=== PATIENT | female | born 1990 | race Caucasian/White ===

== ENCOUNTER 2017-01-16 14:36 | Emergency (ER) | payer SELFPAY ==
[~2017-01-16] VITALS: Ht 160 cm; Wt 58.0 kg
[2017-01-16 14:39] VITALS: BP 127/66; PULSE 102; RESP 20; TEMP 98; O2SAT 98
[2017-01-16] MEDS ORDERED: IBUP800T23 PO (15:35)
[2017-01-16] MEDS ORDERED: CLIN1CAP5 PO (15:35)
--- NOTE | 2017-01-16 15:35 | PD ---
HPI Chief Complaint: Skin Problem Time Seen by Provider: 15:31 Travel History International Travel<30 days: No Contact w/Intl Traveler<30days: No Traveled to known affect area: No History of Present Illness HPI 26-year-old female presents to the emergency department needing medical clearance to report to drug rehabilitation. She has a generalized rash to her body that she has had for multiple months that the rehabilitation center says he will take until she is cleared medically. She has been smoking methamphetamine since July and the rash started a few months after. Reports rash is painful. Reports picking at the scabs consistently. Reports thinking the rash is related to smoking meth. Denies fever, chills, nausea, vomiting. Has tried topical creams with some relief of symptoms. Patient reports being up -to-date on her tetanus vaccinations. Allergies to sulfa. No other modifying factors or associated signs and symptoms. PFSH Past Medical History Depression: Yes Cancer: No Diminished Hearing: No Psychiatric: Yes ("DEPRESSION"--"WAS CRYING FOR NO REASON AT ALL") Seizures: No Thyroid Disease: No Ulcer: No Social History Alcohol Use: Yes (TWICE A MONTH) Tobacco Use: No (1PPD) Substance Use: Yes (HX OF MARIJUANA USE) Allergies-Medications (Allergen,Severity, Reaction): Coded Allergies: Sulfa (Verified Allergy, Severe, Hives, 01/16/17) HIVES Reported Meds & Prescriptions Reported Meds & Active Scripts Active Ibuprofen 800 Mg Tab 800 Mg PO Q6HR PRN Clindamycin (Clindamycin HCl) 150 Mg Cap 450 Mg PO Q6H 10 Days Review of Systems Except as stated in HPI: all other systems reviewed are Neg Physical Exam Narrative GENERAL: Well-nourished, well-developed female patient, in no acute distress; afebrile, nontoxic-appearing SKIN: Warm and dry. Multiple scabbed areas noted to face, chest, back, bilateral upper extremities, buttocks; some areas appear infected with erythema surrounding them, but I do not see any areas that are fluctuant or with drainage. HEAD: Atraumatic. Normocephalic. EYES: Pupils equal and round at 3 mm with brisk reaction. No scleral icterus. No injection or drainage. PERRLA. ENT: Mucosa pink and moist. EARS: Bilateral pinnae and external canals appear within normal limits. NECK: Trachea midline. CARDIOVASCULAR: Regular rate and rhythm. No murmur appreciated. RESPIRATORY: No accessory muscle use. Clear to auscultation. Breath sounds equal bilaterally. GASTROINTESTINAL: Abdomen soft, non-tender, nondistended. Hepatic and splenic margins not palpable. Bowel sounds are active 4 quadrants. MUSCULOSKELETAL: No obvious deformities. No clubbing. No cyanosis. No edema. NEUROLOGICAL: Awake and alert. Oriented 3. No obvious cranial nerve deficits. Motor grossly within normal limits. Normal speech. Moves all extremities. 5/5 strength to all extremities. PSYCHIATRIC: Appropriate mood and affect; insight and judgment normal. Data Data Last Documented VS Vital Signs Date Time Temp Pulse Resp B/P Pulse Ox O2 Delivery O2 Flow Rate FiO2 01/16/17 14:39 98.0 102 20 127/66 98 Room Air MDM Medical Decision Making Medical Screen Exam Complete: Yes Emergency Medical Condition: Yes Medical Record Reviewed: Yes Differential Diagnosis Nonspecific rash, picking, methamphetamine abuse Narrative Course 26-year-old female with a nonspecific rash generalized to her body. The patient reports methamphetamine abuse and reports picking at the areas consistently. She has been smoking methamphetamine since July and the rash started a few minutes later. She wants to get into drug rehabilitation any clearance. There are a few areas that appear erythemic and with possible infection. Patient is afebrile and nontoxic-appearing. She denies fever, chills, nausea and vomiting. Patient reports being up-to-date on her tetanus vaccinations. Clindamycin, ibuprofen prescribed for home. Instructed patient to follow up with dermatology. Patient is medically cleared and stable for discharge. Discussed reasons to return to the emergency department. Instructed patient to follow up with primary care provider. Patient agrees with treatment plan. The patients vital signs are stable and the patient is stable for outpatient follow-up and treatment. Patient discharged home, stable and in no acute distress. Diagnosis Primary Impression: Rash and nonspecific skin eruption Additional Impression: Methamphetamine abuse Referrals: [facility] Primary Care Physician Patient Instructions: Acute Rash (ED), Cellulitis (ED), General Instructions, Methamphetamine Abuse (ED) Additional Instructions: Ibuprofen or Tylenol instructed 90 for pain/information Antibiotics as Prescribed and complete full course Topical ointments and cover bandages as needed to affected areas Follow-up with Primary care provider Follow-up with dermatology as needed Return to the emergency department immediately with worsening symptoms Med/Other Pt SpecificInfo: Prescription(s) given Scripts Ibuprofen 800 Mg [id number] Mg PO Q6HR PRN (PAIN) #30 TAB Ref 0 Prov:Lacy Livingston 01/16/17 Clindamycin 150 Mg [id number] Mg PO Q6H 10 Days Ref 0 Prov:Lacy Livingston 01/16/17 Disposition: 01 DISCHARGE HOME Condition: Stable Lacy Livingston Jan 16, 2017 15:35
== END 2017-01-16 15:54 | disposition home or self-care (01) ==
LOC: NEPB 14:36
DX: R21 Rash and other nonspecific skin eruption (principal); F15.10 Other stimulant abuse, uncomplicated; F17.210 Nicotine dependence, cigarettes, uncomplicated; F12.90 Cannabis use, unspecified, uncomplicated
CPT/HCPCS: 99283